=== PATIENT | male | born 1965 | race Caucasian/White ===

== ENCOUNTER 2020-01-15 10:39 | Emergency (ER) | payer OTHER ==
[~2020-01-15] VITALS: Ht 162.6 cm; Wt 67.1 kg
[2020-01-15 10:52] VITALS: Ht 162.6 cm; Wt 67.1 kg
[2020-01-15 12:37] VITALS: BP 117/78
== END 2020-01-15 12:37 | disposition home or self-care (01) ==
LOC: ED 10:39
DX: S20.211A Contusion of right front wall of thorax, initial encounter (principal); S40.022A Contusion of left upper arm, initial encounter; S40.021A Contusion of right upper arm, initial encounter; W11.XXXA Fall on and from ladder, initial encounter; Y93.H2 Activity, gardening and landscaping; Y92.89 Other specified places as the place of occurrence of the external cause; Y99.8 Other external cause status
CPT/HCPCS: Q0092

== ENCOUNTER 2020-07-25 13:13 | Emergency (ER) | payer OTHER ==
[~2020-07-25] VITALS: Ht 157.5 cm; Wt 63.5 kg
[2020-07-25 13:30] VITALS: Ht 157.5 cm; Wt 63.5 kg
[2020-07-25 14:36] VITALS: BP 120/70
== END 2020-07-25 14:36 | disposition home or self-care (01) ==
LOC: ED 13:13
DX: M54.9 Dorsalgia, unspecified (principal); R10.9 Unspecified abdominal pain; Z98.890 Other specified postprocedural states